=== PATIENT | female | born 2005 | race Caucasian/White ===

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

== ENCOUNTER 2024-07-16 21:12 | Emergency (ER) | payer OTHER ==
--- NOTE | 2024-07-16 21:20 | ERPHSYRPT ---
- History of Present Illness Time Seen by Provider: 07/16/24 21:19 Historian: patient, family Exam Limitations: no limitations Physician History: This is an overweight 19-year-old white female patient of nurse practitioner Efren who has arrived by private vehicle accompanied by her spouse/significant other with a complaint of intermittent mid substernal, nonradiating chest pain that feels like a "pinch". Patient had elevated blood pressure prior to arrival and she took one of her grandmothers nitroglycerin. On arrival to the emergency department patient's blood pressure is 162/90. Her room air oxygen saturation level is 100%. Patient has a history of palpitations. She has never seen a marketing rep. She has no documented history of coronary artery disease. She has no history of bleeding or clotting disorders. She does not have shortness of breath. She does have a history of gastroesophageal reflux disease and depression. Timing/Duration: today Activities at Onset: none Quality: other ("Pinching sensation") Location: substernal, central Chest Pain Radiation: no radiation Severity of Pain-Max: mild Severity of Pain-Current: mild Modifying Factors: Improves With: nothing Associated Symptoms: denies symptoms Prior Chest Pain/Cardiac Workup: no prior chest pain, no prior cardiac workup Nitro Today/Relief: 0.4 mg x 1, provided at home, complete relief Aspirin Treatment Today: no aspirin today Allergies/Adverse Reactions: sumatriptan [From Imitrex] Allergy (Intermediate, Verified 07/16/24 21:22) states got numb on one side of face Home Medications: Venlafaxine HCl ER 37.5 mg [Effexor ER 37.5 MG] 37.5 mg PO HS 05/28/19 [History] Metoprolol Succinate 25 mg Xl* [Toprol-Xl 25MG Tablets] 25 mg PO HS 07/16/24 [History] Hx Tetanus, Diphtheria Vaccination/Date Given: Yes Hx Influenza Vaccination/Date Given: No Hx Pneumococcal Vaccination/Date Given: No Travel Risk - International Travel Have you traveled outside of the country in past 3 weeks: No - Emerging Infectious Disease Are you exhibiting symptoms associated with any current EIDs: No - Review of Systems Constitutional: No Symptoms Eyes: No Symptoms Ears, Nose, & Throat: No Symptoms Respiratory: No Symptoms Cardiac: Chest Pain (Have resolved) Abdominal/Gastrointestinal: No Symptoms Genitourinary Symptoms: No Symptoms Musculoskeletal: No Symptoms Skin: No Symptoms Neurological: No Symptoms Psychological: No Symptoms Endocrine: No Symptoms Hematologic/Lymphatic: No Symptoms Immunological/Allergic: No Symptoms All Other Systems: Reviewed and Negative - Past Medical History Pertinent Past Medical History: No Neurological History: Migraines Cardiac History: No Pertinent History Respiratory History: Bronchitis Endocrine Medical History: No Pertinent History Musculoskeletal History: Other Psycho-Social History: Anxiety Other Medical History: BURSITIS IN HIP. - Past Surgical History Past Surgical History: Yes Neuro Surgical History: No Pertinent History Cardiac: No Pertinent History Respiratory: No Pertinent History Gastrointestinal: No Pertinent History Genitourinary: No Pertinent History Musculoskeletal: No Pertinent History Female Surgical History: No Pertinent History Other Surgical History: tubes in ears - Social History Smoking Status: Never smoker Exposure to second hand smoke: Yes (occ) Drug Use: none Patient Lives Alone: No - Nursing Vital Signs Nursing Vital Signs: Initial Vital Signs Temperature 97.1 F 07/16/24 21:13 Pulse Rate 94 H 07/16/24 21:13 Respiratory Rate 18 07/16/24 21:13 Blood Pressure 162/90 07/16/24 21:13 O2 Sat by Pulse Oximetry 98 07/16/24 21:13 Pain Scale Pain Intensity 5 - Physical Exam General Appearance: no apparent distress, alert, anxiety, obese Eye Exam: PERRL/EOMI, eyes nml inspection Ears, Nose, Throat Exam: normal ENT inspection, moist mucous membranes Neck Exam: normal inspection, non-tender, supple, full range of motion Respiratory Exam: normal breath sounds, lungs clear, airway intact, No chest tenderness, No respiratory distress Cardiovascular Exam: regular rate/rhythm, normal heart sounds, normal peripheral pulses Gastrointestinal/Abdomen Exam: soft, normal bowel sounds, No tenderness Pelvic Exam: not done Rectal Exam: not done Back Exam: normal inspection, normal range of motion, vertebral tenderness, No CVA tenderness Extremity Exam: normal inspection, normal range of motion, pelvis stable Neurologic Exam: alert, oriented x 3, cooperative, manager adult II-XII nml as tested, nml cerebellar function, nml station & gait, sensation nml Skin Exam: normal color, warm, dry Lymphatic Exam: No adenopathy SpO2 Interpretation: normal O2 Delivery: Room Air - Course Nursing assessment & vital signs reviewed: Yes EKG Interpreted by Me: RATE (95), Sinus Rhythm, NORMAL AXIS, NORMAL INTERVALS, NORMAL QRS, Other (No acute ischemic changes. QTc is 434) Ordered Tests: Active Orders 24 hr Category Date Time Status Sulphate Tester STAT Care 07/16/24 21:40 Active EKG-ER Only STAT Care 07/16/24 21:40 Active IV Insertion STAT Care 07/16/24 21:40 Active Pulse Oximetry (ED) STAT Care 07/16/24 21:40 Active CBC W DIFF Stat Lab 07/16/24 21:35 Completed CMP Stat Lab 07/16/24 21:35 Completed HCG QUALITATIVE, URINE Stat Lab 07/16/24 21:35 Completed MAGNESIUM Stat Lab 07/16/24 21:35 Completed TROPONIN Q4H Lab 07/16/24 21:35 Completed TROPONIN Q4H Lab 07/17/24 01:45 Ordered TROPONIN Q4H Lab 07/17/24 05:45 Ordered UA W/RFX UR CULTURE Stat Lab 07/16/24 21:42 Completed Medication Summary Discontinued Medications Generic Name Dose Route Start Last Admin Trade Name Freq PRN Reason Stop Dose Admin Aspirin 324 mg 07/16/24 21:40 07/16/24 21:46 Aspirin 81 Mg Tab.Chew PO 07/16/24 21:41 324 mg STAT ONE Administration Aspirin Confirm 07/16/24 21:45 Aspirin 81 Mg Tab.Chew Administered 07/16/24 21:46 Dose 324 mg .ROUTE .STK-MED ONE Metoprolol Tartrate 5 mg 07/16/24 21:48 Metoprolol Tartrate 5 Mg/5 Ml Vial IV 07/16/24 21:49 STAT ONE Metoprolol Tartrate Confirm 07/16/24 21:49 Metoprolol Tartrate 5 Mg/5 Ml Vial Administered 07/16/24 21:50 Dose 5 mg IV .STK-MED ONE Lab/Rad Data: Laboratory Result Diagrams 07/16/24 21:35 07/16/24 21:35 Laboratory Results 07/16/24 07/16/24 07/16/24 Range/Units 21:42 21:35 21:35 WBC (3.98-10.04) x10^3/uL RBC (3.93-5.22) x10^6/uL Hgb (11.2-15.7) g/dL Hct (34.1-44.9) % MCV (79.4-94.8) fL MCH (25.6-32.2) pg MCHC (32.2-35.5) g/dL RDW (11.7-14.4) % Plt Count (182-369) x10^3/uL MPV (9.4-12.3) fL Gran % (34.0-71.1) % Immature Gran % (Auto) (0.001-0.429) % Nucleat RBC Rel Count (0.00-0.2) % Eos # (Auto) (0.04-0.36) x10^3/uL Immature Gran # (Auto) (0.001-0.031) x10^3u/L Absolute Lymphs (auto) (1.18-3.74) x10^3/uL Absolute Monos (auto) (0.24-0.86) x10^3/uL Absolute Nucleated RBC (0.00-0.012) x10^3u/L Lymphocytes % (19.3-51.7) % Monocytes % (4.7-12.5) % Eosinophils % (0.7-5.8) % Basophils % (0.1-1.2) % Absolute Granulocytes (1.56-6.13) x10^3/uL Basophils # (0.01-0.08) x10^3/uL Sodium (135-145) mmol/L Potassium (3.5-5.1) mmol/L Chloride (98-107) mmol/L Carbon Dioxide (22-30) mmol/L Anion Gap (5-15) MEQ/L BUN (7-17) mg/dL Creatinine (0.52-1.04) mg/dL Estimated GFR ML/MIN Glucose (74-106) mg/dL Calcium (8.4-10.2) mg/dL Magnesium (1.6-2.3) mg/dL Total Bilirubin (0.2-1.3) mg/dL AST (14-36) U/L ALT (0-35) U/L Alkaline Phosphatase (38-126) U/L Troponin I < 0.012 (0.000-0.033) ng/mL Serum Total Protein (6.3-8.2) g/dL Albumin (3.5-5.0) g/dL Urine Color Yellow (Yellow) Urine Appearance Clear (Clear) Urine pH 7.0 (4.6-8.0) Ur Specific [place] <=1.005 (1.005-1.030) Urine Protein Negative (Negative) Urine Glucose (UA) Negative (Negative) mg/dL Urine Ketones Negative (Negative) Urine Blood Negative (Negative) Urine Nitrite Negative (Negative) Urine Bilirubin Negative (Negative) Urine Urobilinogen 0.2 (0.2) mg/dL Ur Leukocyte Esterase Small A (Negative) U Hyaline Cast (Auto) NONE SEEN (0-2) /LPF Urine Microscopic RBC 0-2 (0-5) /HPF Urine Microscopic WBC 3-5 (0-5) /HPF Ur Epithelial Cells Rare (None Seen) /HPF Urine Bacteria None Seen (None Seen) /HPF Urine Culture Reflexed NO (NO) Urine HCG, Qual NEGATIVE (NEGATIVE) 07/16/24 07/16/24 Range/Units 21:35 21:35 WBC 11.7 H (3.98-10.04) x10^3/uL RBC 4.48 (3.93-5.22) x10^6/uL Hgb 12.3 (11.2-15.7) g/dL Hct 38.1 (34.1-44.9) % MCV 85.0 (79.4-94.8) fL MCH 27.5 (25.6-32.2) pg MCHC 32.3 (32.2-35.5) g/dL RDW 13.4 (11.7-14.4) % Plt Count 363 (182-369) x10^3/uL MPV 9.8 (9.4-12.3) fL Gran % 57.6 (34.0-71.1) % Immature Gran % (Auto) 0.3 (0.001-0.429) % Nucleat RBC Rel Count 0.0 (0.00-0.2) % Eos # (Auto) 0.10 (0.04-0.36) x10^3/uL Immature Gran # (Auto) 0.03 (0.001-0.031) x10^3u/L Absolute Lymphs (auto) 3.75 H (1.18-3.74) x10^3/uL Absolute Monos (auto) 1.01 H (0.24-0.86) x10^3/uL Absolute Nucleated RBC 0.00 (0.00-0.012) x10^3u/L Lymphocytes % 32.1 (19.3-51.7) % Monocytes % 8.6 (4.7-12.5) % Eosinophils % 0.9 (0.7-5.8) % Basophils % 0.5 (0.1-1.2) % Absolute Granulocytes 6.75 H (1.56-6.13) x10^3/uL Basophils # 0.06 (0.01-0.08) x10^3/uL Sodium 142 (135-145) mmol/L Potassium 4.2 (3.5-5.1) mmol/L Chloride 105 (98-107) mmol/L Carbon Dioxide 24 (22-30) mmol/L Anion Gap 17.5 H (5-15) MEQ/L BUN 10 (7-17) mg/dL Creatinine 0.79 (0.52-1.04) mg/dL Estimated GFR 109.1 ML/MIN Glucose 77 (74-106) mg/dL Calcium 9.6 (8.4-10.2) mg/dL Magnesium 2.0 (1.6-2.3) mg/dL Total Bilirubin 0.40 (0.2-1.3) mg/dL AST 27 (14-36) U/L ALT 23 (0-35) U/L Alkaline Phosphatase 80 (38-126) U/L Troponin I (0.000-0.033) ng/mL Serum Total Protein 7.9 (6.3-8.2) g/dL Albumin 4.7 (3.5-5.0) g/dL Urine Color (Yellow) Urine Appearance (Clear) Urine pH (4.6-8.0) Ur Specific [place] (1.005-1.030) Urine Protein (Negative) Urine Glucose (UA) (Negative) mg/dL Urine Ketones (Negative) Urine Blood (Negative) Urine Nitrite (Negative) Urine Bilirubin (Negative) Urine Urobilinogen (0.2) mg/dL Ur Leukocyte Esterase (Negative) U Hyaline Cast (Auto) (0-2) /LPF Urine Microscopic RBC (0-5) /HPF Urine Microscopic WBC (0-5) /HPF Ur Epithelial Cells (None Seen) /HPF Urine Bacteria (None Seen) /HPF Urine Culture Reflexed (NO) Urine HCG, Qual (NEGATIVE) - Progress Progress: improved, re-examined Air Movement: good Progress Note: 07/16/24 22:04 My medical decision making of the assignment of moderate complexity to this patient's medical issue today is based on review of the patient's past medical history, review of the patient's medication list, reviewed patient drug allergy list, history present illness and physical findings on examination. The workup in this patient includes placement of a intravenous line, urinalysis, CBC, CMP, magnesium level, troponin level twelve-lead EKG and urine test. Differential diagnosis includes but is not limited to myocardial infarction, arrhythmia, electrolyte abnormalities, anxiety, palpitations This patient has a low heart score as well as a low probability of pulmonary embolus. I do not see the need for this patient to have a D-dimer level drawn. In addition, if her troponin level is normal, I do not think she needs to be placed in observation to be observed or have a second troponin drawn. 07/16/24 22:28 I interpreted the patient's laboratory data results. Based on laboratory data results, the patient has no acute, emergent medical issue. Blood Culture(s) Obtained: No Antibiotics given: No Counseled pt/family regarding: lab results, diagnosis, need for follow-up Medical Desision Making - Independent Historian Additional History obtained from: Spouse - Diagnostic Testing Diagnostic test were ordered, analyzed, and reviewed by me: Yes - Risk of complications Low Risk: Low risk of morbidity from additional dx testing or treatment - Departure Departure Disposition: Home Clinical Impression: Nonspecific chest pain Condition: Stable Critical Care Time: No Referrals: LIZA CASEY NP [Primary Care Provider] - Follow up/PCP as directed Additional Instructions: Take all your medications as prescribed. Call your prescribing provider tomorrow, 07/17/2024, to make arrangements for follow-up appointment for further evaluation management.
[2024-07-16 21:22] VITALS: TEMP 97.1
[2024-07-16 21:44] LABS: Absolute Neutrophil Ct (ANC) 6.75 x10^3/uL (1.56-6.13); BASOPHIL % 0.5 % (0.1-1.2); Basophil (Absolute #) 0.06 x10^3/uL (0.01-0.08); Eosinophil % 0.9 % (0.7-5.8); Hematocrit 38.1 % (34.1-44.9); Hemoglobin 12.3 g/dL (11.2-15.7); IMMATURE GRAN # 0.03 x10^3u/L (0.001-0.031); IMMATURE GRAN % 0.3 % (0.001-0.429); Lymphocyte (Absolute #) 3.75 x10^3/uL (1.18-3.74); Lymphocytes % 32.1 % (19.3-51.7); Mean Corpuscular Hemoglobin 27.5 pg (25.6-32.2); Mean Corpuscular Hgb Concent. 32.3 g/dL (32.2-35.5); Mean Platelet Volume 9.8 fL (9.4-12.3); Monocyte (Absolute #) 1.01 x10^3/uL (0.24-0.86); Monocytes % 8.6 % (4.7-12.5); Neutrophil % 57.6 % (34.0-71.1); Platelet Count 363 x10^3/uL (182-369); Red Blood Count 4.48 x10^6/uL (3.93-5.22); Red Cell Distribution Width 13.4 % (11.7-14.4); White Blood Count 11.7 x10^3/uL (3.98-10.04)
[2024-07-16] MEDS ORDERED: BABY ASPIRIN 81 MG CHEW ONE (21:45)
[2024-07-16] MEDS: BABY ASPIRIN 81 MG CHEW PO ONE (21:46)
[2024-07-16] MEDS ORDERED: LOPRESSOR INJECTION IV ONE (21:49)
[2024-07-16 21:50] LABS: HCG URINE TEST NEGATIVE (NEGATIVE)
[2024-07-16 21:55] LABS: Appearance Clear (Clear); Bacteria None Seen /HPF (None Seen); Bilirubin Negative (Negative); Blood Negative (Negative); Epithelial Cells Rare /HPF (None Seen); Glucose, Urine Negative (Negative); Hyaline Casts NONE SEEN /LPF (0-2); Ketones Negative (Negative); Leukocyte Esterase Small (Negative); Nitrite Negative (Negative); Protein,Urine Dip Negative (Negative); RBC 0-2 /HPF (0-5); Specific Gravity <=1.005 (1.005-1.030); Urobilinogen 0.2 mg/dL (0.2)
[2024-07-16 21:57] LABS: ALBUMIN 4.7 g/dL (3.5-5.0); ANION GAP 17.5 MEQ/L (5-15); BILIRUBIN,TOTAL 0.4 mg/dL (0.2-1.3); Calcium 9.6 mg/dL (8.4-10.2); Creatinine 1 0.79 mg/dL (0.52-1.04); EST GLOMERULAR FILTRATION RATE 109.1 ML/MIN; Potassium 4.2 mmol/L (3.5-5.1); Total Protein 7.9 g/dL (6.3-8.2)
[2024-07-16 22:26] VITALS: BP 126/84; PULSE 104; RESP 20; O2SAT 99
[2024-07-16] MEDS: LOPRESSOR INJECTION IV ONE (22:29)
== END 2024-07-16 22:40 | disposition home or self-care (01) ==
LOC: ED 21:12
DX: R07.9 Chest pain, unspecified (principal); Z79.899 Other long term (current) drug therapy
CPT/HCPCS: 36415; 80053; 81001; 81025; 83735; 84484; 85025; 93005; 93041; 94760; 99284; A9270-GY